=== PATIENT | female | born 1980 | race Caucasian/White ===

== ENCOUNTER 2017-02-03 12:17 | Emergency (ER) | payer OTHER ==
[~2017-02-03] VITALS: Ht 165.1 cm; Wt 87.5 kg
[~2017-02-03 12:17] MED LIST: ENDOCET 5-3251 EACH PO; IBUPROFEN800 MG PO; Macrobid PO; NOHOMEMEDS; PRENATAL TABLE1 EAC3 PO; ZOFRAN4 MG PO
[2017-02-03] MEDS ORDERED: FLEXERIL10 MG PO (14:17)
[2017-02-03] MEDS ORDERED: PERCOCET 5/31 TABLET PO (14:17)
[2017-02-03] MEDS ORDERED: MOTRIN800 MG PO (14:18)
[2017-02-03 14:34] VITALS: BP 114/76
== END 2017-02-03 14:36 | disposition home or self-care (01) ==
LOC: EME 12:17
DX: S16.1XXA Strain of muscle, fascia and tendon at neck level, initial encounter (principal); S43.401A Unspecified sprain of right shoulder joint, initial encounter; X58.XXXA Exposure to other specified factors, initial encounter; Z88.8 Allergy status to other drugs, medicaments and biological substances
CPT/HCPCS: 73030; 99281; 99285; J1885